=== PATIENT | male | born 1990 | race Caucasian/White ===

== ENCOUNTER 2017-10-10 16:27 | Emergency (ER) | payer OTHER ==
[~2017-10-10] VITALS: Ht 188 cm; Wt 127.6 kg
[2017-10-10] MEDS ORDERED: FLEXERIL10 MG PO (18:25)
[2017-10-10] MEDS ORDERED: ULTRAM50 MG PO (18:25)
[2017-10-10] MEDS ORDERED: LIDODERM 5% P1 PATCH TD (18:25)
[2017-10-10 18:47] VITALS: BP 128/66
== END 2017-10-10 18:53 | disposition home or self-care (01) ==
LOC: EME 16:27 → EDBD 16:27 → EME 18:53
DX: M54.5 Low back pain (principal); G89.29 Other chronic pain
CPT/HCPCS: 99281; 99284